=== PATIENT | female | born 1960 | race Caucasian/White ===

== ENCOUNTER → 2023-05-10 16:32 | Outpatient (CLI) | payer BC, SELFPAY ==
--- NOTE | ~2023-05-10 | XR_ITS ---
EXAMINATION: XR ankle LT min 3V, XR foot LT min 3V DATE: 05/10/2023 17:04 INDICATION: Left foot injury TECHNIQUE: 1. Anteroposterior, mortise, additional oblique and lateral view of the left ankle were obtained. 2. Dorsoplantar, two oblique and lateral views of the left foot were obtained. COMPARISON: None. FINDINGS: Alignment of the left foot and ankle is normal. There are a couple corticated ossicles along the dist al tip of the lateral malleolus which could represent either chronic nondisplaced and nonunited avuls ion fracture fragments or heterotopic ossification related to chronic lateral ankle sprain. No acute fracture. Mild polyarticular osteoarthritis involving multiple joints throughout the left foot. Moder ate-sized Achilles and plantar calcaneal spurs. No ankle joint effusion. The soft tissues are unremar kable. IMPRESSION: 1. Corticated ossicles along the tip of the lateral malleolus most likely either chronic nonunited av ulsion fracture fragment or heterotopic ossification related to chronic lateral ankle sprain. Given t he cortication this injury would have occurred well prior to one month. 2. Degenerative skeletal changes including mild polyarticular osteoarthritis throughout the left foot and moderate sized Achilles and plantar calcaneal enthesophytes. Reviewed, dictated and finalized at location B. [employer] IMPRESSION: 1. Corticated ossicles along the tip of the lateral malleolus most likely eithe r chronic nonunited avulsion fracture fragment or heterotopic ossification rela raissa to chronic lateral ankle sprain. Given the cortication this injury would elmore ve occurred well prior to one month. 2. Degenerative skeletal changes including mild polyarticular osteoarthritis th roughout the left foot and moderate sized Achilles and plantar calcaneal enthes ophytes.
== END ==
PROVIDERS: PCP Nurse Practitioner Family; Visit Provider Nurse Practitioner Family
DX: S99.922D Unspecified injury of left foot, subsequent encounter (principal); X58.XXXD Exposure to other specified factors, subsequent encounter; M19.072 Primary osteoarthritis, left ankle and foot
CPT/HCPCS: 73610; 73630